=== PATIENT | female | born 1945 | race Caucasian/White ===

== ENCOUNTER 2018-05-18 06:34 | Day surgery (SDC) | payer MEDICARE, OTHER, SELFPAY ==
[2018-05-14 11:13] VITALS: BP 143/72; PULSE 69; RESP 16; TEMP 36.3; O2SAT 96; BMI 28.4
--- NOTE | 2018-05-14 11:34 | SDCEKG_ITS ---
Test Reason : Blood Pressure : / mmHG Vent. Rate : 063 BPM Atrial Rate : 063 BPM P-R Int : 202 ms QRS Dur : 096 ms QT Int : 412 ms P-R-T Axes : 051 -21 045 degrees QTc Int : 421 ms Normal sinus rhythm Normal ECG Confirmed by LINETTE BRODERICK, ETHAN ([id number]), deputy editor in chief ELI POSADA ([id number] on 05/17/2018 2:36:16 PM Referred By: Meera Frederick Confirmed By:ETHAN SUE MD
[2018-05-14 11:53] LABS: Hematocrit 41.3 % (37-47); Hemoglobin 13.1 g/dl (12.0-15.0); Mean Corp Hgb Conc 31.7 g/gl (32-36); Mean Corpuscular Hgb 30.8 pg (27.0-32.0); Mean Corpuscular Volume 96.9 fL (81-99); Mean Platelet Vol. 11.5 fl (6.2-12.0); Platelet Count 172 K/mm3 (150-450); RBC Distribution Width CV 13.5 % (11.6-14.6); RBC Distribution Width SD 47.8 fl (35.1-43.9); Red Blood Count 4.26 M/mm3 (4.2-5.4); White Blood Count 6.5 K/mm3 (4.4-11.0)
[2018-05-14 11:54] LABS: Scan Indicated on CBC? Y/N NO
[2018-05-14 11:55] LABS: Bacteria 0 SEEN /hpf (None Seen); Mucous, Urine 0 SEEN /hpf (<or=2+); Red Blood Cells-Urine 0 SEEN /hpf (0-5); White Blood Cells 0 SEEN /hpf (0-5)
[2018-05-14 11:57] LABS: Color, Urine Yellow (Yellow); Glucose, Dipstick Normal (Normal); Ketone-Dipstick Negative (Negative); Leukocyte Esterase-Dipstick Negative /ul (Negative); Nitrite-Dipstick Negative (Negative); Occult Blood-Urine Negative /ul (Negative); Protein-Dipstick Negative (Negative); Urine Bilirubin Dipstick Negative (Negative); Urine Clarity Sl. Cloudy (Clear); Urine Urobilinogen Normal (Normal)
[2018-05-14 11:58] LABS: Prothrombin Time (Protime)PT. 12.9 SECONDS (11.7-14.9)
[2018-05-14 11:59] LABS: Partial Thromboplast Time 23.2 Seconds (24.1-36.2)
[2018-05-14 12:04] LABS: Squamous Epithelial Cells - UA 5-10 SEEN /hpf (5-10)
[2018-05-14 12:17] LABS: AST(SGOT) 20 U/L (15-37); Alanine Aminotransfer ALT/SGPT 33 U/L (13-56); Albumin, Serum 3.8 g/dL (3.2-5.0); Alkaline Phosphatase 90 U/L (45-117); Bilirubin, Direct 0.11 mg/dL (0.00-0.30); Globulin 3.5 g/dL (2.2-4.2); Protein, Total 7.3 g/dL (6.4-8.2); Thyroid Stim Hormone (TSH) 0.52 uIU/mL (0.358-3.74)
[2018-05-18 06:56] VITALS: BP 146/75; PULSE 63; RESP 16; TEMP 36.1; O2SAT 100; BMI 30.2
[2018-05-18] MEDS: Cefazolin 2 GM in 0.9% Normal Saline 100 ML IV (08:10)
[2018-05-18 09:04] VITALS: BP 125/59; BP 146/75; PULSE 70; RESP 16; TEMP 36.2; O2SAT 99
--- NOTE | 2018-05-18 09:11 | PCM.IMDPSTOP ---
Problem List (1) SHELL (stress urinary incontinence, female) Status: Acute (2) Urethral hypermobility Status: Acute Immediate Post-Op Note Date of Procedure: 05/18/18 Primary Surgeon/Physician: Meera Frederick MD regulatory intern: Yamile Peralta Pre-Operative Diagnosis: Stress urinary incontinence and urethral hypermobility Post-Operative Diagnosis: Same Surgery/Procedure Performed:: Mid urethral sling, Altis; cystoscopy Description of Surgical Findings:: No issues with sling insertion or cystoscopy. Does have thin vaginal mucosa. Estimated Blood Loss: 10cc Specimen's removed: none - Admit VTE Documentation VTE Mechan Device Prophylaxis: SCD's VTE Pharm Prophylaxis ordered?: No Reason prophylaxis not ordered:: Treatment Not Indicated
[2018-05-18 09:15] VITALS: BP 130/71; BP 146/75; PULSE 65; RESP 16; O2SAT 99
--- NOTE | 2018-05-18 09:15 | OP.PN_ITS ---
Problem List (1) SHELL (stress urinary incontinence, female) Status: Acute (2) Urethral hypermobility Status: Acute Immediate Post-Op Note Date of Procedure: 05/18/18 Primary Surgeon/Physician: Meera Frederick MD mgmt specialist: Yamile Peralta Pre-Operative Diagnosis: Stress urinary incontinence and urethral hypermobility Post-Operative Diagnosis: Same Surgery/Procedure Performed:: Mid urethral sling, Altis; cystoscopy Description of Surgical Findings:: No issues with sling insertion or cystoscopy. Does have thin vaginal mucosa. Estimated Blood Loss: 10cc Specimen's removed: none - Admit VTE Documentation VTE Mechan Device Prophylaxis: SCD's VTE Pharm Prophylaxis ordered?: No Reason prophylaxis not ordered:: Treatment Not Indicated
[2018-05-18 09:30] VITALS: BP 142/69; BP 146/75; PULSE 49; RESP 16; O2SAT 100
[2018-05-18 09:45] VITALS: BP 131/69; BP 146/75; PULSE 50; RESP 16; TEMP 36.5; O2SAT 98
[2018-05-18 11:00] VITALS: BP 129/74; BP 146/75; PULSE 67; RESP 16; TEMP 36.6; O2SAT 96
--- NOTE | 2018-06-05 12:26 | OP.PCM_ITS ---
Problem List (1) SHELL (stress urinary incontinence, female) Status: Acute (2) Urethral hypermobility Status: Acute Report of Operation Date of Procedure: 05/18/18 Pre-Operative Diagnosis: Stress urinary incontinence and urethral hypermobility Post-Operative Diagnosis: Same Surgery/Procedure Performed:: Mid urethral sling, Altis; cystoscopy Description of Surgical Findings:: No issues with sling insertion or cystoscopy. Does have thin vaginal mucosa. Type of Anesthesia:: General Specimen's removed: none Estimated Blood Loss (mL): 10cc Description of Procedure: The patient is a 72-year-old female presented to the office with significant complaints of stress urinary incontinence. After undergoing a full evaluation and discussing all of the alternatives, risks and benefits, the patient agreed to proceed with insertion of the mid urethral sling. Patient was taken to the operating room placed in the operating room table. Anesthesia monitored the head neck area IV access and vital signs throughout the case. Once anesthesia was probably administered the patient was placed into dorsal lithotomy and Trendelenburg position was prepped and draped in usual sterile fashion. An 18 [place] Wall catheter was inserted and the bladder was drained. The mid urethra was identified and submucosally injected with 1% lidocaine with epinephrine. A midline vertical incision approximately 1.5 cm in length was then made. Sharp and blunt dissection ensued until the vacuum metalizer operator complexes were palpable bilaterally. The trochars were then used to pass first the right side of the sling into the complex through the incision and dissection made. The left side then ensued. The mesh was tensioned appropriately using the tensioning suture. It lay flat and coapted against the urethra. At this time the tensioning suture was cut and the midline incision was closed using running interlocking 2-0 Vicryl. Cystourethroscopy was then performed revealing no evidence of foreign material within the urethra or the urinary bladder. There is no blood identified on cystoscopy. The patient's bladder was left mildly full, the scope was removed and she was awakened and taken to the recovery room in good condition. No complications during this procedure. Grafts/Implants Used: Altis midurethral sling - Complications none - Admit VTE Documentation VTE Mechan Device Prophylaxis: SCD's Reason prophylaxis not ordered:: Treatment Not Indicated
--- NOTE | 2018-06-05 12:27 | PCM.HP.STD ---
Problem List (1) SHELL (stress urinary incontinence, female) Status: Acute (2) Urethral hypermobility Status: Acute History of Present Illness Date of Admission: 05/18/18 The patient is a 72 year old F [] Past Medical History Medical History: Medical History (Last Updated 06/05/18 @ 12:28 by Meera Frederick MD) Hypothyroidism E03.9 Hypertension I10 Allergies Iodinated Contrast- Oral and IV Dye Allergy (Verified 05/14/18 10:59) Hives adhesive tape Adverse Reaction (Verified 05/14/18 10:59) Unknown Home Medications: Ambulatory Orders Medication Instructions Recorded Amlodipine [Norvasc] 5 mg PO DAILY 05/14/18 Levothyroxine Sodium [Synthroid] 150 mcg PO DAILY 05/14/18 Multivitamin [Multiple Vitamins] 1 each PO DAILY 05/14/18 Cephalexin [Keflex] 500 mg PO Q12 3 Days #6 cap NS 05/18/18 Oxycodone HCl/Acetaminophen 1 - 2 tab PO Q6H PRN PRN 7 Days 05/18/18 [Percocet 5/325] #30 tab NS Psychiatric History: No pertinent psych hx 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 Smoking Status: Former smoker Tobacco Use: Non-smoker VTE Information - Inpt Only VTE Present on Admission: Yes VTE Mechan Device Prophylaxis: SCD's VTE Pharm Prophylaxis ordered?: No Reason prophylaxis not ordered:: Treatment Not Indicated - Physical Exam General: Alert, Oriented x3, Cooperative, Well developed, Well nourished HEENT: Atraumatic Oral: Moist Mucosa Neck: Supple, No JVD Lungs: Clear to auscultation Cardiovascular: Regular rate, Regular Rhythm Abdomen: Bowel Sounds Present, Soft, Non Tender, Non-Distended Skin: No rashes, No breakdown Musculoskeletal: No Tenderness to Palpation of Joints or Extremities, No Muscle Wasting Lymphatic: No Cervical, Supraclavicular, or Inguinal Adenopathy Neurological: Cranial nerves II-XII grossly intact, Muscle tone normal Psych/Mental Status: Normal Affect, Appropriate, Alert and oriented to time, place, person, mood and affect Vital Signs Temp Pulse Resp BP Pulse Ox 97.9 F 67 16 129/74 H 96 05/18/18 11:00 05/18/18 11:00 05/18/18 11:00 05/18/18 11:00 05/18/18 11:00 Oxygen Delivery Method Room Air Weight: 80 kg Body Mass Index (BMI) 30.2 Assessment/Plan All Active Problems (Last Updated 06/05/18 @ 12:28 by Meera Frederick MD) SHELL (stress urinary incontinence, female) (Acute) Urethral hypermobility (Acute) Altis midurethral sling insertion, cystoscopy
--- NOTE | 2018-06-05 12:31 | HP.PCM_ITS ---
Problem List (1) SHELL (stress urinary incontinence, female) Status: Acute (2) Urethral hypermobility Status: Acute History of Present Illness Date of Admission: 05/18/18 The patient is a 72 year old F [] Past Medical History Medical History: Medical History (Last Updated 06/05/18 @ 12:28 by Meera Frederick MD) Hypothyroidism E03.9 Hypertension I10 Allergies Iodinated Contrast- Oral and IV Dye Allergy (Verified 05/14/18 10:59) Hives adhesive tape Adverse Reaction (Verified 05/14/18 10:59) Unknown Home Medications: Ambulatory Orders Medication Instructions Recorded Amlodipine [Norvasc] 5 mg PO DAILY 05/14/18 Levothyroxine Sodium [Synthroid] 150 mcg PO DAILY 05/14/18 Multivitamin [Multiple Vitamins] 1 each PO DAILY 05/14/18 Cephalexin [Keflex] 500 mg PO Q12 3 Days #6 cap NS 05/18/18 Oxycodone HCl/Acetaminophen 1 - 2 tab PO Q6H PRN PRN 7 Days 05/18/18 [Percocet 5/325] #30 tab NS Psychiatric History: No pertinent psych hx 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 Smoking Status: Former smoker Tobacco Use: Non-smoker VTE Information - Inpt Only VTE Present on Admission: Yes VTE Mechan Device Prophylaxis: SCD's VTE Pharm Prophylaxis ordered?: No Reason prophylaxis not ordered:: Treatment Not Indicated - Physical Exam General: Alert, Oriented x3, Cooperative, Well developed, Well nourished HEENT: Atraumatic Oral: Moist Mucosa Neck: Supple, No JVD Lungs: Clear to auscultation Cardiovascular: Regular rate, Regular Rhythm Abdomen: Bowel Sounds Present, Soft, Non Tender, Non-Distended Skin: No rashes, No breakdown Musculoskeletal: No Tenderness to Palpation of Joints or Extremities, No Muscle Wasting Lymphatic: No Cervical, Supraclavicular, or Inguinal Adenopathy Neurological: Cranial nerves II-XII grossly intact, Muscle tone normal Psych/Mental Status: Normal Affect, Appropriate, Alert and oriented to time, place, person, mood and affect Vital Signs Temp Pulse Resp BP Pulse Ox 97.9 F 67 16 129/74 H 96 05/18/18 11:00 05/18/18 11:00 05/18/18 11:00 05/18/18 11:00 05/18/18 11:00 Oxygen Delivery Method Room Air Weight: 80 kg Body Mass Index (BMI) 30.2 Assessment/Plan All Active Problems (Last Updated 06/05/18 @ 12:28 by Meera Frederick MD) SHELL (stress urinary incontinence, female) (Acute) Urethral hypermobility (Acute) Altis midurethral sling insertion, cystoscopy
== END 2018-05-18 11:05 | disposition home or self-care (01) ==
LOC: SDC 06:35 → AC 06:36
PROVIDERS: Anesthesiology; Visit Provider Urology
PROC: 0TJB8ZZ Inspection of Bladder, Via Natural or Artificial Opening Endoscopic (ICD-10-PCS; CPT 57288; principal; 2018-05-18 07:50)
DX: N36.41 Hypermobility of urethra (principal); N39.3 Stress incontinence (female) (male); I10 Essential (primary) hypertension; E03.9 Hypothyroidism, unspecified; K58.9 Irritable bowel syndrome, unspecified; F41.9 Anxiety disorder, unspecified; Z79.899 Other long term (current) drug therapy; Z78.0 Asymptomatic menopausal state; Z85.3 Personal history of malignant neoplasm of breast; Z92.3 Personal history of irradiation; Z87.891 Personal history of nicotine dependence; Z90.710 Acquired absence of both cervix and uterus
CPT/HCPCS: 51992; 80076; 81001; 84443; 85027; 85610; 85730; 87086; 87088; 93005; J7120; J2405